=== PATIENT | male | born 1980 | race Caucasian/White ===

== ENCOUNTER → 2019-12-29 10:33 | Outpatient (CLI) | payer OTHER, SELFPAY ==
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
== END ==
PROVIDERS: Visit Provider Orthopaedic Surgery
DX: M25.511 Pain in right shoulder (principal)
CPT/HCPCS: 73200

== ENCOUNTER → 2020-08-16 07:24 | Outpatient (CLI) | payer OTHER, SELFPAY ==
--- NOTE | ~2020-08-16 | US_ITS ---
EXAMINATION: US soft tissue groin RT EXAM DATE: 08/16/2020 08:16 INDICATION: Right groin pain. No bulging. TECHNIQUE: Multiple grayscale and Doppler images of the right inguinal region were obtained (by a carly hnologist who performed the scan) and subsequently reviewed. There is no prior study for comparison. FINDINGS: No evidence of right inguinal hernia, lymphadenopathy, musculature or subcutaneous abnormality. No fl uid collection. IMPRESSION: 1. Unremarkable right inguinal ultrasound. Reviewed, dictated and finalized at location B.
--- NOTE | ~2020-08-16 | XR_ITS ---
EXAMINATION: XR abdomen/kub 1V EXAM DATE: 08/16/2020 08:16 INDICATION: Generalized abdominal pain. TECHNIQUE: Frontal projection(s) of the abdomen for interpretation. There is no prior study for sami regalado. FINDINGS: There is a 4 mm density projecting over the upper pole of the left kidney, and a punctate density projecting over mid pole of the left kidney. These could be small kidney stones. Several calc ifications are most likely phleboliths. Moderate amount of colonic stool. No small bowel obstruction. There are no osseous abnormalities identified. IMPRESSION: Probable nephrolithiasis bilaterally. Reviewed, dictated and finalized at location B.
== END ==
DX: R10.84 Generalized abdominal pain (principal)
CPT/HCPCS: 74018; 76882

== ENCOUNTER → 2020-10-27 08:59 | Outpatient (CLI) | payer OTHER, SELFPAY ==
--- NOTE | ~2020-10-27 | MR_ITS ---
EXAMINATION: MR lumbar spine wo con DATE: 10/27/2020 09:35 INDICATION: Low back pain. Right leg pain. TECHNIQUE: Magnetic resonance imaging (MRI) of the lumbar spine was performed without intravenous con trast. Sequences included sagittal T2-weighted FSE, sagittal T2-weighted FS FSE, sagittal T1-weighted FSE, and axial T2-weighted FSE. COMPARISON: None FINDINGS: Bone alignment is normal. There is mild chronic anterior wedging of T11 and T12 vertebral b odies, likely physiologic. Intervertebral disc heights are normal. The distal spinal cord signal inte nsity is normal. The conus medullaris is at L1. The following disc levels are specifically discussed: L1-L2: The disc does not extend beyond the endplate margin. There is no facet joint osteoarthritis. T here is no neural foraminal stenosis. There is no central canal stenosis. L2-L3: The disc does not extend beyond the endplate margin. There is mild bilateral facet joint osteo arthritis. There is no neural foraminal stenosis. There is no central canal stenosis. L3-L4: The disc does not extend beyond the endplate margin. There is mild bilateral facet joint osteo arthritis. There is no neural foraminal stenosis. There is no central canal stenosis. L4-L5: The disc does not extend beyond the endplate margin. There is no facet joint osteoarthritis. T here is no neural foraminal stenosis. There is no central canal stenosis. L5-S1: The disc does not extend beyond the endplate margin. There is no facet joint osteoarthritis. T here is no neural foraminal stenosis. There is no central canal stenosis. IMPRESSION: 1. Mild bilateral facet joint osteoarthritis at L2-L3 and L3-L4. Reviewed, dictated and finalized at location A. [employer]
== END ==
PROVIDERS: PCP Family Medicine; Visit Provider Family Medicine
DX: M51.36 Other intervertebral disc degeneration, lumbar region (principal)
CPT/HCPCS: 72148

== ENCOUNTER 2024-01-14 14:37 | Outpatient (CLI) | payer OTHER, SELFPAY ==
--- NOTE | ~2024-01-14 | XR_ITS ---
EXAMINATION: XR lumbar spine 2-3V DATE: 01/14/2024 14:58 INDICATION: Chronic low back pain. TECHNIQUE: 3 views of lumbar spine were obtained. COMPARISON: Lumbar spine MRI 10/27/2020 FINDINGS: Bone alignment is normal. Vertebral body heights are normal. Intervertebral disc heights ar e normal. There are endplate osteophytes at L3-L4. There is multilevel mild facet joint osteoarthriti s. IMPRESSION: 1. Mild lumbar spondylosis. Reviewed, dictated and finalized at location E. UNT TECHNICIAN IMPRESSION: 1. Mild lumbar spondylosis.
== END 2024-01-14 14:38 ==
DX: M43.06 Spondylolysis, lumbar region (principal); G89.29 Other chronic pain
CPT/HCPCS: 72100

== ENCOUNTER 2024-02-19 09:21 | Outpatient (CLI) | payer OTHER, SELFPAY ==
--- NOTE | ~2024-02-19 | MR_ITS ---
EXAMINATION: MR lumbar spine wo con, MR pelvis wo con DATE: 02/19/2024 09:59 INDICATION: Low back pain TECHNIQUE: 1. Magnetic resonance imaging (MRI) of the lumbar spine was performed without intravenous contrast. S equences included sagittal T2-weighted FSE, sagittal T2-weighted FS FSE, sagittal T1-weighted FSE, an d axial T2-weighted FSE. 2. MRI of the pelvis was performed without intravenous contrast. Sequences included axial, sagittal a nd coronal T1-weighted FSE and T2-weighted FS FSE. COMPARISON: None FINDINGS: Lumbar spine: Alignment is normal. Minimal likely physiologic anterior wedging at T12. Lumbar vertebral body height s are normal. Normal marrow signal. Disc heights and signal are normal. The conus medullaris termina aureliano at L1-L2. There is normal signal in the caudal spinal cord. Paravertebral soft tissues are unrema rkable. The following disc levels are specifically discussed: T12-L1: The disc does not extend beyond the endplate margin. There is no facet joint osteoarthritis. There is no neural foraminal stenosis. There is no central canal stenosis. L1-L2: The disc does not extend beyond the endplate margin. There is minimal bilateral facet joint os teoarthritis. There is no neural foraminal stenosis. There is no central canal stenosis. L2-L3: The disc does not extend beyond the endplate margin. There is mild bilateral facet joint osteo arthritis. There is no neural foraminal stenosis. There is no central canal stenosis. L3-L4: The disc does not extend beyond the endplate margin. There is mild bilateral facet joint osteo arthritis. There is no neural foraminal stenosis. There is no central canal stenosis. L4-L5: Disc is mildly bulging. There is mild bilateral facet joint osteoarthritis. There is mild bila teral neural foraminal stenosis. There is no central canal stenosis. L5-S1: The disc does not extend beyond the endplate margin. There is minimal bilateral facet joint os teoarthritis. There is no neural foraminal stenosis. There is no central canal stenosis. Pelvis: Bone alignment is normal. Normal bone marrow signal throughout with no fracture, reactive edema, oste onecrosis or other pathologic marrow replacing process. Linear high signal intensity tear at the base of the left anterosuperior to superolateral acetabular labrum. Likely similar smaller tear at the ba se of the right superolateral acetabular labrum. Bilateral hip joint spaces appear otherwise normal w ith no significant joint space narrowing, marginal osteophytes or joint effusions. The musculature an d associated tendons of the pelvis and proximal thighs appear normal and symmetric. Visualized viscer al organs in the pelvis appear normal. No free fluid in the pelvis, bursitis or other abnormal fluid collections. IMPRESSION: 1. Negligible lumbar spondylosis. . 2. Tear at the anterosuperior to superolateral left acetabular labrum and likely smaller tear at the superolateral right acetabular labrum. Reviewed, dictated and finalized at location B. IMPRESSION: 1. Negligible lumbar spondylosis. . 2. Tear at the anterosuperior to superolateral left acetabular labrum and likel y smaller tear at the superolateral right acetabular labrum.
== END 2024-02-19 09:22 ==
DX: R10.10 Upper abdominal pain, unspecified (principal); M54.50 Low back pain, unspecified; S73.192A Other sprain of left hip, initial encounter; X58.XXXA Exposure to other specified factors, initial encounter
CPT/HCPCS: 72148; 72195